=== PATIENT | male | born 1940 | race Caucasian/White ===

== ENCOUNTER 2018-06-26 15:22 | Emergency (ER) | payer MEDICARE, OTHER ==
[~2018-06-26] VITALS: Ht 170.2 cm; Wt 88.0 kg
[2018-06-26 15:36] VITALS: BP 94/47
== END 2018-06-26 17:38 | disposition home or self-care (01) ==
LOC: ER 15:23
DX: S20.212A Contusion of left front wall of thorax, initial encounter (principal); W17.89XA Other fall from one level to another, initial encounter; Y93.89 Activity, other specified; Y92.89 Other specified places as the place of occurrence of the external cause; Y99.8 Other external cause status
CPT/HCPCS: 71046; 99284

== ENCOUNTER 2020-03-24 07:16 | Emergency (ER) | payer OTHER, MEDICARE ==
[~2020-03-24] VITALS: Ht 180.3 cm; Wt 79.0 kg
[~2020-03-24 07:16] MED LIST: ALOG12.5 PO; CARB-126 PO; CARB-17 PO; CHOL100046 PO; CYAN500L3 PO; DONE10TA7 PO; FERR325T28 PO; LEVO25TA2 PO; SIMV10TA2 PO; TRAZ-251 PO
[2020-03-24 08:33] LABS: BASOPHILS # (AUTO) 0.1 X10'3 (0-0.2); BASOPHILS % (AUTO) 0.4 % (0-1); EOSINOPHILS # (AUTO) 0.1 X10'3 (0-0.9); EOSINOPHILS % (AUTO) 0.6 % (0-6); HEMATOCRIT 37.3 % (42.0-52.0); HEMOGLOBIN 12.3 g/dl (14.0-17.9); LYMPHOCYTES # (AUTO) 2.3 X10'3 (1.1-4.8); LYMPHOCYTES % (AUTO) 16.4 % (21-51); MEAN PLATELET VOLUME 9.1 FL (7.4-10.4); NEUTROPHILS # (AUTO) 10.3 X10'3 (1.8-7.7); NEUTROPHILS % (AUTO) 75.6 % (42-75); PLATELET COUNT 161 X10'3 (140-440); RED BLOOD COUNT 3.97 X10'6 (4.70-6.10); RED CELL DISTRIBUTION WIDTH 14.4 % (11.5-14.5); WHITE BLOOD COUNT 13.7 X10'3 (4.5-11.0)
[2020-03-24 08:48] LABS: ALANINE AMINOTRANSFERASE 21 U/L (12-78); ALBUMIN 3.8 G/DL (3.4-5.0); ALBUMIN/GLOBULIN RATIO 0.9 (1.1-1.5); ALKALINE PHOSPHATASE 106 IU/L (46-116); ANION GAP 8 (8-16); ASPARTATE AMINO TRANSFERASE 24 U/L (10-37); BILIRUBIN,TOTAL 0.6 MG/DL (0.1-1.0); BLOOD UREA NITROGEN 30 MG/DL (7-18); BUN/CREATININE RATIO 26.3 (5.4-32.0); CALCIUM 9.5 MG/DL (8.5-10.1); CHLORIDE 103 MMOL/L (99-107); CREATININE 1.14 MG/DL (0.60-1.10); GLUCOSE 175 MG/DL (70-104); POTASSIUM 4.2 MMOL/L (3.5-5.1); SODIUM 140 MMOL/L (135-145); TOTAL CARBON DIOXIDE 29.3 MMOL/L (24-32); eGFR 62 ML/MIN
--- NOTE | 2020-03-24 08:50 | NUR ---
Ana Laura joshi in [place] - 03/24/20 at 0851 by MONROE at [id number]
--- NOTE | 2020-03-24 08:51 | NUR ---
at 0800 head and cervical spine were clear on the ct, provider confirmed removal of the c-collar
--- NOTE | 2020-03-24 09:00 | NUR ---
Trinh called from social [employer] specialist stated she is aware of pt from previous visit. stated she will contact and make sure they have home health still set up from last discharge.
--- NOTE | 2020-03-24 09:23 | NUR ---
Full linen change, and partial bed bath provided. Pt arrived to ED in heavily soiled brief.
[2020-03-24 09:39] LABS: CLARITY,URINE CLEAR (Clear); COLOR,URINE YELLOW (Yellow); GLUCOSE, URINE NEGATIVE (Neg); KETONES,URINE NEGATIVE (Neg); LEUKOCYTE ESTERASE ,URINE TRACE (Neg); NITRITES, URINE NEGATIVE (Neg); OCCULT BLOOD,URINE NEGATIVE (Neg); PROTEIN,URINE NEGATIVE (Neg); UROBILINOGEN,URINE 0.2 E.U/dL (0.2-1.0)
[2020-03-24 09:41] LABS: UA COLLECTION TYPE STRAIGHT CATH
[2020-03-24 09:44] LABS: RBC,URINE NONE SEEN /HPF (0-2); WBC,URINE 20-30 /HPF (0-4)
[2020-03-24 09:45] LABS: BACTERIA,URINE FEW /HPF (Neg); MUCUS STRANDS NONE SEEN /LPF (Neg); SQUAMOUS EPITHELIAL CELL,UR FEW /LPF (FEW)
[2020-03-24] MEDS ORDERED: CefTRIAXone/D5W-Rocephin 1gm 50 ML IV ONE (10:25)
[2020-03-24] MEDS ORDERED: CEPH250T PO (12:01)
[2020-03-24 13:23] VITALS: BP 125/59
== END 2020-03-24 13:25 | disposition home or self-care (01) ==
LOC: ER 07:16
DX: M54.5 Low back pain (principal); N39.0 Urinary tract infection, site not specified; G20 Parkinson's disease; F02.80 Dementia in other diseases classified elsewhere, unspecified severity, without behavioral disturbance, psychotic disturbance, mood disturbance, and anxiety; Z79.899 Other long term (current) drug therapy; Z79.2 Long term (current) use of antibiotics; W06.XXXA Fall from bed, initial encounter; Y93.89 Activity, other specified; Y92.89 Other specified places as the place of occurrence of the external cause; Y99.8 Other external cause status
CPT/HCPCS: 36415; 70450; 71045; 72125; 72131; 80053; 81001; 85025; 87088; 93005; 96365; 99285; J0696